=== PATIENT | female | born 1990 | race Two or more races ===

== ENCOUNTER 2017-03-11 21:58 | Observation (INO) | payer MEDICAID, OTHER, SELFPAY ==
[~2017-03-11] VITALS: Ht 157.5 cm; Wt 81.0 kg
[2017-03-11 22:25] LABS: DAU SCREEN DISCLAIMER
[2017-03-11 22:40] LABS: BLOOD UREA NITROGEN 8 mg/dL (7-18)
[2017-03-11 22:42] LABS: ACETAMINOPHEN < 2 mcg/mL (10-30)
[2017-03-11] MEDS ORDERED: ZIPRASIDONE 20 MG INJ IM ONE ×2 (23:22→23:30)
[2017-03-12] MEDS ORDERED: ONDANSETRON ODT 4 MG PO PRN (04:00)
[2017-03-12] MEDS ORDERED: LORazepam 1MG TABLET PO PRN (04:00)
[2017-03-12] MEDS ORDERED: POTASSIUM CHLORIDE 20 MEQ TAB.ER.PRT PO ONE (04:00)
[2017-03-12] MEDS ORDERED: ZIPRASIDONE 20 MG INJ IM PRN (04:00)
[2017-03-12] MEDS ORDERED: HYDROcodone/APAP 5/325 TABLET PO PRN (04:00)
[2017-03-12] MEDS ORDERED: LORazepam 1MG TABLET ONE (08:43)
[2017-03-13 08:00] VITALS: BP 141/81
[2017-03-13 19:22] VITALS: BP 128/89
[2017-03-14 07:11] LABS: BLOOD UREA NITROGEN 10 mg/dL (7-18)
[2017-03-14 07:40] VITALS: BP 117/78
[2017-03-14 19:54] VITALS: BP 119/74
[2017-03-15 07:25] VITALS: BP 128/83
== END 2017-03-15 15:23 | disposition home or self-care (01) ==
LOC: ED 22:42 → EDIP 03-12 02:59 → 3E 03-12 05:23
PROVIDERS: ADMIT Internal Medicine; ATTEND Internal Medicine
DX: R45.851 Suicidal ideations (principal); F29 Unspecified psychosis not due to a substance or known physiological condition; E87.6 Hypokalemia; E66.9 Obesity, unspecified; F10.129 Alcohol abuse with intoxication, unspecified; F32.9 Major depressive disorder, single episode, unspecified; R45.850 Homicidal ideations
CPT/HCPCS: 36415; 80048; 80307; 80329; 82040; 84443; 84703; 85025; 96372; 99285; G0378; J3486; G0480

== ENCOUNTER 2019-09-30 18:41 | Emergency (ER) | payer SELFPAY ==
[~2019-09-30] VITALS: Ht 165.1 cm; Wt 82.0 kg
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
--- NOTE | 2019-09-30 19:01 | NUR ---
RECEIVED REPORT FROM SHERINE MORA TO ASSUME CARE OF PT. LAB AT AT THIS TIME. SITTER IN [place]. CONTINUOUS PULSE OX AND B/P MONTIORS IN PLACE AT THIS TIME. BELONGINGS WERE REMOVED AND PALCED IN LOCKER PRIOR TO ASSUMING CARE.
[2019-09-30 19:11] LABS: BASOPHILS # (AUTO) 0.05 x10^3/uL (0-0.1); BASOPHILS % (AUTO) 1 % (0-1); EOSINOPHILS # (AUTO) 0.07 x10^3/uL (0-0.4); EOSINOPHILS % (AUTO) 1 % (1-7); LYMPHOCYTES # (AUTO) 1.36 x10^3/uL (1-3.4); LYMPHOCYTES % (AUTO) 23 % (22-44); MD NO; MEAN CORPUSCULAR HEMOGLOBIN 30.7 pg (27.0-34.8); MEAN CORPUSCULAR HGB CONC 33.5 g/dL (32.4-35.8); MEAN CORPUSCULAR VOLUME 91.6 fL (80-100); MEAN PLATELET VOLUME 8.3 fL (7.4-10.4); MONOCYTES # (AUTO) 0.33 x10^3/uL (0.2-0.8); MONOCYTES % (AUTO) 6 % (2-9); NEUTROPHILS # (AUTO) 4.22 x10^3/uL (1.8-6.8); NEUTROPHILS % (AUTO) 70 % (42-75); PLATELET COUNT 286 x10^3/uL (130-400); RED CELL DISTRIBUTION WIDTH 12.7 % (9.6-15.2)
--- NOTE | 2019-09-30 19:17 | NUR ---
DR. COHEN IN ROOM TO EVAL PT. AND DISCUSS POC.
[2019-09-30 19:23] LABS: ALBUMIN 3.7 g/dL (3.4-5.0); ANION GAP 10 mmol/L (5-15); CALCIUM 8.2 mg/dL (8.5-10.1); CHLORIDE 110 mmol/L (98-107)
[2019-09-30 19:24] LABS: SALICYLATE LEVEL < 1.7 mg/dL (2.8-20.0)
--- NOTE | 2019-09-30 19:27 | NUR ---
REQUESTED PT. TO PROVIDE URINE SAMPLE; PT. STATES UNABLE AT THIS TIME. DISCUSSED NEED FOR STRAIGHT CATH UA FOR SAMPLE IF UNABLE WITHIN THE NEXT 20 MINUTES. PT. VERBALIZED UNDERSTANDING OF THIS AND REQUESTED WATER; PROVIDED WITH WATER AT THIS TIME. PT. DENIES OTHER NEEEDS AT THIS TIME.
[2019-09-30 19:29] LABS: ALANINE AMINOTRANSFERASE 85 U/L (12-78); ALKALINE PHOSPHATASE 113 U/L (45-117); BILIRUBIN,TOTAL 0.3 mg/dL (0.2-1.0); CREATININE 0.71 mg/dL (0.55-1.02); TOTAL PROTEIN 7.7 g/dL (6.4-8.2)
--- NOTE | 2019-09-30 20:08 | NUR ---
PT. AMBULATED TO BR WITH STEADY GAIT. PT. VERBALIZED UNDERSTANDING OF INSTRUCITONS TO PROVIDE CLEAN CATH URINE.
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
[2019-09-30 20:37] LABS: MICROSCOPIC AUTO
[2019-09-30 20:38] LABS: CULTURE INDICATED? YES
[2019-09-30 20:47] LABS: AMPHETAMINE SCREEN, URINE Positive (Negative); BARBITURATE SCREEN, URINE Negative (Negative); BENZODIAZEPINE SCREEN, URINE Negative (Negative); CANNABINOID SCREEN, URINE Negative (Negative); COCAINE SCREEN, URINE Negative (Negative); METHADONE SCREEN, URINE Negative (Negative); OPIATE SCREEN, URINE Negative (Negative)
--- NOTE | 2019-09-30 22:23 | NUR ---
PT. RESTING ON GURNEY WITH T.V. ON. PT. LAUGING HYSTERICALLY AT T.V. AT TIMES AND OCCASIONALY HAVING CONVERSATIONS WITH SELF NO ONE ELSE IS IN THE ROOM. PT. DENIES NEEDS AND REMAINS CALM/COOPERATIVE WITH ED STAFF. NO DISTRESS NOTED. MONTIORS REMAIN IN [place]. SITTER REMAINS IN DOORWAY. PT. AWARE OF PLAN FOR TELEPSYCH EVAL WHEN SOBER.
--- NOTE | 2019-10-01 00:39 | NUR ---
PT. CONTINUES RESTING ON [employer] WITH TV ON. PT. WAS AMBULATORY TO WITH STEADY GAIT. PT. DENIES NEEDS AT THIS TIME. NO DISTRESS NOTED. CALL LIGHT IN REACH. PT. AWAITING TELEPSYCH EVAL.
--- NOTE | 2019-10-01 02:09 | NUR ---
NO CHANGE SINCE LAST NOTE.
--- NOTE | 2019-10-01 02:40 | NUR ---
REPORT TO TELEPSYCH .
--- NOTE | 2019-10-01 03:24 | NUR ---
PER SITTER AND PT. TELEPSYCH EVAL HAS NOT OCCURED YET. ON HOLD WITH TELEPSYCH AT THIS TIME TO ASK FOR TIME ESTIMATE FOR WHEN EVAL WILL BE DONE.
--- NOTE | 2019-10-01 03:44 | NUR ---
TELEPSYCH CALLED BACK TO THIS RN AND REPORTED PT. IS TO D/C HOME WITH OUTPATIENT SERVICES LONG THIS RN IS ABLE TO SPEAK WITH MOTHER VIA TP AND ENSURE PT. IS ABLE TO GO HOME WITH MOTHER. TP CALL TO MOTHER AT THIS TIME AND MOTHER STATES IT IS FINE FOR DAUGHTER TO RETURN HOME BUT FAMILY HAS NO WAY TO COME GET THIS PT. AT THIS TIME. CAB VOUCHER TO BE PROVIDED.
[2019-10-01 03:47] VITALS: BP 145/89
== END 2019-10-01 04:01 | disposition home or self-care (01) ==
LOC: ED 19:32
DX: F15.250 Other stimulant dependence with stimulant-induced psychotic disorder with delusions (principal); F22 Delusional disorders; F17.210 Nicotine dependence, cigarettes, uncomplicated
CPT/HCPCS: 36415; 80053; 80307; 81001; 84703; 85025; 87086; 99283

== ENCOUNTER 2020-02-12 16:22 | Emergency (ER) | payer MEDICAID ==
[~2020-02-12] VITALS: Ht 162.6 cm; Wt 150.0 kg
--- NOTE | 2020-02-12 17:32 | NUR ---
Bedside report received from Dina RN, pt care transferred at this time. Pt resting in gurney, eyes closed, RESP WNL and heard, NAD, skin WNL warm and dry. WCJESSICA. pt is to [facility].
--- NOTE | 2020-02-12 18:30 | NUR ---
lATE eNTRY: Pt resting in gurney, eyes closed, RESP WNL and heard, NAD, skin WNL warm and dry. WCTM. pt is to [facility].
--- NOTE | 2020-02-12 19:06 | NUR ---
report of pt from caren chaves and assuming care of pt at this time
--- NOTE | 2020-02-12 21:07 | NUR ---
PT AWAKENED BY THIS RN TO CHECK NEUROLOGIC FUNCTION. PT ALERT AND ORIENTED AT THIS TIME. PT STATES SHE WANTS TO GO HOME. PT CALLED MOTHER FOR RIDE HOME FROM ED. PT VSS AND UPDATED IN EMR.
[2020-02-12 21:08] VITALS: BP 105/78
== END 2020-02-12 21:22 | disposition home or self-care (01) ==
LOC: ED 18:44
DX: F10.221 Alcohol dependence with intoxication delirium (principal); Y90.9 Presence of alcohol in blood, level not specified; F17.200 Nicotine dependence, unspecified, uncomplicated
CPT/HCPCS: 99283